=== PATIENT | female | born 1990 | race Caucasian/White ===

== ENCOUNTER 2016-07-01 19:25 | Emergency (ER) | payer OTHER ==
[2016-07-01 19:30] VITALS: TEMP 98.2
--- NOTE | 2016-07-01 20:52 | ED ---
Female Urogenital HPI - General Chief complaint: Vaginal Bleeding Stated complaint: 8 weeks pg; spotting Time Seen by Provider: 07/01/16 20:25 Source: patient, RN notes reviewed, old records reviewed Mode of arrival: ambulatory Limitations: no limitations - History of Present Illness Initial comments: Patient is a 25-year-old female with chief complaint of vaginal bleeding for approximately one day. She reports that she is approximately 8 weeks . She states that this is her second . Last menstrual period was mid April. She states with her first , she had no complications. She states that she did see her [facility] Dr. Angulo on Sunday and had some lab work done. She is unable to obtain lab work today. Patient reports that she does have some lower cramping pain. She reports that the pain is currently a 4 out of 10. She denies nausea, vomiting, shortness of breath, fever, chills, chest pain, dysuria, hematuria, diarrhea. - Related Data Home Medications Medication Instructions Recorded Confirmed No Known Home Medications [No 07/01/16 07/01/16 Known Home Medications] Allergies Allergy/AdvReac Type Severity Reaction Status Date / Time No Known Allergies Allergy Verified 07/01/16 19:27 Review of Systems ROS Statement: Those systems with pertinent positive or pertinent negative responses have been documented in the HPI. ROS Other: All systems not noted in ROS Statement are negative. Past Medical History Past Medical History: COPD History of Any Multi-Drug Resistant Organisms: None Reported Past Surgical History: No Surgical Hx Reported Past Psychological History: No Psychological Hx Reported Smoking Status: Current every day smoker Past Alcohol Use History: None Reported Past Drug Use History: Marijuana General Exam Limitations: no limitations General appearance: alert, in no apparent distress Head exam: Present: atraumatic, normocephalic, normal inspection Eye exam: Present: normal appearance, PERRL, EOMI. Absent: scleral icterus, conjunctival injection, periorbital swelling ENT exam: Present: normal exam, mucous membranes moist Neck exam: Present: normal inspection. Absent: tenderness, meningismus, lymphadenopathy Respiratory exam: Present: normal lung sounds bilaterally. Absent: respiratory distress, wheezes, rales, rhonchi, stridor Cardiovascular Exam: Present: regular rate, normal rhythm, normal heart sounds. Absent: systolic murmur, diastolic murmur, rubs, gallop, clicks GI/Abdominal exam: Present: soft, normal bowel sounds. Absent: distended, tenderness, guarding, rebound, rigid External exam: Present: normal external exam Speculum exam: Present: cervical discharge (bleeding. No evidence of significant clots or particles of conception. ), vaginal bleeding. Absent: normal speculum exam By manual exam: Present: normal by manual exam Extremities exam: Present: normal inspection, full ROM, normal capillary refill. Absent: tenderness, pedal edema, joint swelling, calf tenderness Back exam: Present: normal inspection Neurological exam: Present: alert, oriented X3, CN II-XII intact Psychiatric exam: Present: normal affect, normal mood Skin exam: Present: warm, dry, intact, normal color. Absent: rash Course Vital Signs 07/01/16 07/01/16 07/02/16 19:27 22:30 00:48 Temperature 98.2 F Pulse Rate 97 81 78 Respiratory 18 16 16 Rate Blood Pressure 135/78 122/69 129/71 O2 Sat by Pulse 100 98 98 Oximetry Medical Decision Making - Medical Decision Making Patient is a 25-year-old female with chief complaint of vaginal bleeding for approximately one day. She reports that she is approximately 8 weeks . She states that this is her second . Patient transvaginal US shows single IUP measuring 6 weeks. Patient is B+ for blood bank, and serum hcg is 28, 200. Patient does have significant vaginal bleeding, cervix is not dialated, no clots. Patient instructed that she has a threatened miscarraige and needs to repeat lab work and follow up with OB Dr. Angulo. Patient given note for work. Patient understands treatment plan and will comply. Did discuss pelvic rest and no strenous activity. - Lab Data Result diagrams: 07/01/16 22:31 Lab Results 07/01/16 07/01/16 07/01/16 Range/Units 22:04 22:31 22:31 WBC 7.6 (3.8-10.6) k/uL RBC 4.18 (3.80-5.40) m/uL Hgb 12.5 (11.4-16.0) gm/dL Hct 36.7 (34.0-46.0) % MCV 88.0 (80.0-100.0) fL MCH 29.9 (25.0-35.0) pg MCHC 34.0 (31.0-37.0) g/dL RDW 12.3 (11.5-15.5) % Plt Count 164 (150-450) k/uL Neutrophils % 62 % Lymphocytes % 27 % Monocytes % 6 % Eosinophils % 2 % Basophils % 1 % Neutrophils # 4.7 (1.3-7.7) k/uL Lymphocytes # 2.1 (1.0-4.8) k/uL Monocytes # 0.5 (0-1.0) k/uL Eosinophils # 0.1 (0-0.7) k/uL Basophils # 0.1 (0-0.2) k/uL HCG, Quant 34979.9 mIU/mL Urine Color Urine Appearance (Clear) Urine pH (5.0-8.0) Ur Specific [place] (1.001-1.035) Urine Protein (Negative) Urine Glucose (UA) (Negative) Urine Ketones (Negative) Urine Blood (Negative) Urine Nitrate (Negative) Urine Bilirubin (Negative) Urine Urobilinogen (<2.0) mg/dL Ur Leukocyte Esterase (Negative) Urine WBC (0-5) /hpf Ur Squamous Epith Cells (0-4) /hpf Urine Bacteria (None) /hpf Urine Mucus (None) /hpf Trichomonas Ag (Rapid) Negative (Negative) Blood Type Blood Type Recheck 07/01/16 07/01/16 Range/Units 22:31 22:43 WBC (3.8-10.6) k/uL RBC (3.80-5.40) m/uL Hgb (11.4-16.0) gm/dL Hct (34.0-46.0) % MCV (80.0-100.0) fL MCH (25.0-35.0) pg MCHC (31.0-37.0) g/dL RDW (11.5-15.5) % Plt Count (150-450) k/uL Neutrophils % % Lymphocytes % % Monocytes % % Eosinophils % % Basophils % % Neutrophils # (1.3-7.7) k/uL Lymphocytes # (1.0-4.8) k/uL Monocytes # (0-1.0) k/uL Eosinophils # (0-0.7) k/uL Basophils # (0-0.2) k/uL HCG, Quant mIU/mL Urine Color Rea Urine Appearance Clear (Clear) Urine pH 6.0 (5.0-8.0) Ur Specific [place] 1.030 (1.001-1.035) Urine Protein Negative (Negative) Urine Glucose (UA) Negative (Negative) Urine Ketones 2+ H (Negative) Urine Blood Small H (Negative) Urine Nitrate Negative (Negative) Urine Bilirubin Negative (Negative) Urine Urobilinogen <2.0 (<2.0) mg/dL Ur Leukocyte Esterase Negative (Negative) Urine WBC 3 (0-5) /hpf Ur Squamous Epith Cells 1 (0-4) /hpf Urine Bacteria Rare H (None) /hpf Urine Mucus Occasional H (None) /hpf Trichomonas Ag (Rapid) (Negative) Blood Type B Positive Blood Type Recheck No - Radiology Data Radiology results: report reviewed Ultrasound gestational age is 6 weeks and 1 day. The estimated delivery date is to bed 17. getting process. Single live IUP. Disposition Clinical Impression: Threatened Disposition: HOME SELF-CARE Condition: Good Instructions: Threatened Miscarriage (ED) Additional Instructions: Patient advised to follow up with [facility]. Patient advised also repeat her lab work only 48 hours to compare today's. Patient's beta hCG is currently 28, 800. Patient is to remain on light duty no heavy lifting, or sexual intercourse. Referrals: Kanchan Mack MD [STAFF PHYSICIAN] - 1-2 days Shawn Trotter MD [Primary Care Provider] - 1-2 days Time of Disposition: 00:23
--- NOTE | 2016-07-01 22:02 | US ---
EXAMINATION TYPE: US OB <= 14 wk fetus DATE OF EXAM: 07/01/2016 9:50 PM COMPARISON: NONE CLINICAL HISTORY: pain. spotting, no previous ultrasound with this EXAM PERFORMED: Transabdominal (TA) EXAM MEASUREMENTS: GESTATIONAL AGE / DATING Dates by LMP: (6 weeks/5 days) EDC: 02/19/2017 Dates by Current Scan: (6 weeks/1 days) EDC: 02/23/2017 MATERNAL ANATOMY Uterus: 8.2 x 5.7 x 4.9 cm Right Ovary: 2.8 x 2.0 x 1.4 cm Left Ovary: 3.5 x 2.8 x 2.4 cm Post CDS / Adnexa: no free fluid Presence of corpus luteal cyst: left ovary = 2.0 x 2.2 x 1.9 cm Presence of subchorionic bleed: no bleed seen GESTATION / SURVEY CRL: 0.4 cm (6 weeks/1 days) MSD: not measured Yolk Sac (normal less than 6mm): 1.9 mm Heart Rate: 120 bpm Rhythm: Normal IUP: Viable IUP Date of LMP: 05/15/2016 Beta HcG (if available): not available TECHNOLOGIST IMPRESSION: Live single IUP seen measuring 6 weeks 1 day IMPRESSION: Ultrasound gestational age is 6 weeks 1 day. The IGOR is 02/23/2017. I see no complicating process.
[2016-07-01 22:47] LABS: Basophils # (A) 0.1 k/uL (0-0.2); Basophils % (A) 1 %; CH 30.5; CHCM 34.8; Eosinophils # (A) 0.1 k/uL (0-0.7); Eosinophils % (A) 2 %; HCT 36.7 % (34.0-46.0); HDW 1.98; HGB 12.5 gm/dL (11.4-16.0); Luc # (Auto) 0.16; Luc % (Auto) 2; Lymphocytes # (A) 2.1 k/uL (1.0-4.8); Lymphocytes % (A) 27 %; MCH 29.9 pg (25.0-35.0); Mean Platelet Volume 8.7; Monocytes # (A) 0.5 k/uL (0-1.0); Monocytes % (A) 6 %; Neutrophils # (A) 4.7 k/uL (1.3-7.7); Neutrophils % (A) 62 %; RBC 4.18 m/uL (3.80-5.40); RDW 12.3 % (11.5-15.5); WBC 7.6 k/uL (3.8-10.6); WBC (Perox) 7.93
[2016-07-01 22:50] LABS: Appearance,Urine Clear (Clear); Bacteria,Urine Rare /hpf; Bilirubin,Urine Negative (Negative); Glucose,Urine (UA) Negative (Negative); Ketones,Urine 2+ (Negative); Leukocyte Esterase,Urine Negative (Negative); Mucus,Urine Occasional /hpf; Nitrite,Urine Negative (Negative); Particle Count 4339; Protein,Urine Negative (Negative); Squamous Epithelial Cell,Urine 1 /hpf (0-4); UA Billing (MACRO vs. MICRO) MICRO; Urobilinogen,Urine <2.0 mg/dL (<2.0); WBC,Urine 3 /hpf (0-5)
[2016-07-02 00:48] VITALS: RESP 16
[2016-07-02 00:49] VITALS: BP 129/71; PULSE 78
== END 2016-07-02 00:48 | disposition home or self-care (01) ==
LOC: EC 19:25
DX: O20.0 Threatened abortion (principal); O99.331 Smoking (tobacco) complicating pregnancy, first trimester; F17.200 Nicotine dependence, unspecified, uncomplicated; Z3A.01 Less than 8 weeks gestation of pregnancy
CPT/HCPCS: 36415; 76801; 81001; 84702; 85025; 86900; 86901; 87070; 87205; 87491; 87591; 87808; 99284

== ENCOUNTER → 2016-07-03 | Outpatient (CLI) | payer OTHER | END | disposition home or self-care (01) | LOC: LABWHC1 09:55 | PROVIDERS: ATTEND Physician Assistant Medical | DX: O20.0 Threatened abortion (principal) | CPT/HCPCS: 36415; 84702 ==

== ENCOUNTER → 2016-07-11 | Outpatient (CLI) | payer OTHER ==
--- NOTE | 2016-07-11 19:34 | US ---
EXAMINATION TYPE: US OB <= 14 wk fetus DATE OF EXAM: 07/11/2016 6:39 PM COMPARISON: Prior in PACS CLINICAL HISTORY: Z34.80 Confirm Dates. Spotting EXAM PERFORMED: Transabdominal (TA)- patient declined transvaginal ultrasound EXAM MEASUREMENTS: GESTATIONAL AGE / DATING Physician Established: Not established Dates by LMP: (8 weeks/1 days) EDC: 02/19/2017 Dates by First Scan: (7 weeks/4 days) EDC: 02/23/2017 Dates by Current Scan for: (7 weeks/3 days) EDC: 02/24/2017 MATERNAL ANATOMY Uterus: 10.8 x 5.4 x 6.3 cm Right Ovary: 3.1 x 1.7 x 2.3 cm Left Ovary: 3.1 x 2.3 x 3.1 cm Post CDS / Adnexa: wnl Presence of free fluid: No Presence of corpus luteal cyst: Yes, left ovary measuring 1.6 x 1.4 x 2.0 cm Presence of subchorionic bleed: Yes, to the right of the gestational sac 1.2 x 1.1 x 1.0 cm GESTATION / SURVEY CRL: 1.23 cm (7 weeks/3 days) Yolk Sac (normal less than 6mm): 2 mm Heart Rate: 149 bpm Rhythm: Normal IUP: Viable IUP Date of LMP: 05/15/2016- patient unsure about this date Beta HcG (if available): Not available at time of exam TECHNOLOGIST IMPRESSION: Viable IUP with an IGOR of 02/24/2017 on this exam. Probable subchorionic ble ed visualized. Cyst visualized on the right ovary IMPRESSION: There is a small 12 x 10 mm subchorionic fluid collection that could be a small hemorrhage. Living [facility] with gestational age of 7 weeks 3 days.
== END ==
LOC: RADUSMAIN 17:55
PROVIDERS: ATTEND Obstetrics & Gynecology
DX: Z34.80 Encounter for supervision of other normal pregnancy, unspecified trimester (principal)
CPT/HCPCS: 76700; 76801

== ENCOUNTER → 2016-07-11 | Outpatient (CLI) | payer OTHER ==
--- NOTE | 2016-07-11 08:15 | US ---
EXAMINATION TYPE: US abdomen complete DATE OF EXAM: 07/11/2016 7:38 AM COMPARISON: NONE CLINICAL HISTORY: 25-year-old female LUQ Pain R10.1; intermittent midline to LUQ pain x 1 month; preg nant ~ 6 weeks; known gallstones. TECHNIQUE: Multiple sonographic images of the abdomen were obtained. FINDINGS: Liver Length: 18.9 cm Gallbladder Wall: 0.2 cm CBD: 0.3 cm Spleen: 10.1 cm Right Kidney: 11.9 x 5.5 x 4.1 cm Left Kidney: 11.0 x 5.0 x 3.7 cm Pancreas: Within normal limits Liver: Mildly enlarged but with normal homogeneous echotexture and no focal lesion. Gallbladder: No abnormal gallbladder distention, wall thickening, or pericholecystic fluid. However, numerous shadowing calculi are present dependently measuring up to 1.2 cm. Evidence for sonographic Patel's sign: No CBD: Within normal limits Spleen: Within normal limits Right Kidney: No hydronephrosis. There are either some prominent vascular reflections or a 4 mm calc ulus at the midpole. Left Kidney: No hydronephrosis. There are either some prominent vascular reflections or a 3 mm mid po le calculus. Upper IVC: Within normal No evidence for AAA. N vidence for AAA IMPRESSION: 1. Borderline to mild hepatomegaly. The ultrasound appearance of the liver is otherwise relatively un remarkable. 2. Cholelithiasis without ancillary findings of acute cholecystitis. 3. Either prominent vascular reflections or possible 4 mm and 3 mm nonobstructive calculi in the midp ole of the right and left kidneys, respectively.
== END | disposition home or self-care (01) ==
LOC: RADUSWWP 06:59
PROVIDERS: ATTEND Family Medicine
DX: K80.20 Calculus of gallbladder without cholecystitis without obstruction (principal)
CPT/HCPCS: 76700

== ENCOUNTER → 2016-10-09 | Outpatient (CLI) | payer OTHER ==
--- NOTE | 2016-10-09 12:08 | US ---
EXAMINATION TYPE: US OB anatomy transabd DATE OF EXAM: 10/09/2016 COMPARISON: US first trimester July 11, 2016 HISTORY: Z36 ENCOUNTER FOR SCREENING OF MOTHER TECHNIQUE: Transabdominal (TA) EXAM MEASUREMENTS: GESTATIONAL AGE / DATING Physician Established: (21 weeks/0 days) EDC: 02/19/17 Dates by LMP: (21 weeks/0 days) EDC: 02/19/17 Dates by First Scan: (20 weeks/3 days) EDC: 02/23/17 Dates by Current Scan for: (20 weeks/1 days) EDC: 02/25/17 SURVEY IUP: Single PLACENTA: Posterior PREVIA: No previa ENOC: 12.2 cm CERVICAL LENGTH (transabdominal: norm > 3.0cm): 3.7 cm BIOMETRY PRESENTATION: Vertex LIE: Longitudinal BPD: 5.0 cm 21 weeks / 1 days HC: 17.8 cm 20 weeks / 2 days AC: 15.0 cm 20 weeks / 1 days FL: 3.2 cm 20 weeks / 0 days ESTIMATED WEIGHT IN GRAMS: 336 grams ESTIMATED WEIGHT IN LBS/OZS: 0 lbs. 12 oz. WEIGHT PERCENTAGE BASED ON ESTABLISHED DATE: 10 % HC/AC: 1.2 FL/AC: 21.5 HEART RATE: 141 bpm RHYTHM: Normal ANATOMY SEEN (within normal limits): * Lateral Vent (< 1 cm) 0.6 cm * Cisterna Magna (< 1.1 cm) 0.3 cm * Nuchal Fold (< 0.6 cm) 0.3 cm * Cerebellum (varies with age) 1.9 cm Choroid Plexus (bilateral) Midline Falx Cavus Septi Pellucidi Four Chamber Heart Outflow tracts: LVOT/RVOT Stomach Situs Nose / Lips Diaphragm Kidneys (bilateral) Bladder Cord Insert Three Vessel Cord Longitudinal Spine Transverse Spine Arms (bilateral) Legs (bilateral) Anatomy seen wnl. Single live intrauterine gestation is redemonstrated. Normal cephalad presentation to fetus is curren tly identified. There is no ultrasound evidence for placenta previa. Amniotic fluid index is within n ormal limits. biometry measurements are concordant felt within normal limits. Detailed anatomic al survey shows no suspicious abnormality on still images saved nor during real-time scanning per clemente hnologist. IMPRESSION: As above
== END | disposition home or self-care (01) ==
LOC: RADUSWWP 10:13
PROVIDERS: ATTEND Obstetrics & Gynecology
DX: Z36 Encounter for antenatal screening of mother (principal)
CPT/HCPCS: 76811

== ENCOUNTER 2017-01-04 | Outpatient (CLI) | payer OTHER ==
--- NOTE | 2017-01-29 09:11 | P.MSEPDOC ---
Presenting Problems - Arrival Data Date of Arrival on Unit: 01/04/17 Time of Arrival on Unit: 14:37 Mode of Transport: Wheelchair - Complaint OB-Reason for Admission/Chief Complaint: Observation/Evaluation Comment: pt c/o lower abd to left side discomfrt for 1 week. pt states its worse when shes up ambulating. pt sees dr leija but unable to get into see him so she showed up here to be evualted Medical History - Information : 2 Para: 1 Term: 1 : 0 Abortions: Spontaneous or Elective: 0 Number of Living Children: 1 - Gestational Age Gestational Age by IGOR (wks/days): 33 Weeks and 3 Days - History Complications: Smoker Comment: no record to look at due to pt a D.O.M Review of Systems - Review of Systems Constitutional: No problems Breast: No problems ENT: No problems Cardiovascular: No problems Respiratory: No problems Gastrointestinal: No problems Genitourinary: No problems Musculoskeletal: No problems Neurological: No problems Skin: No problems Comment: PT STATES SHE HAS PROBLEMS WITH GALLSTONES AND COPD AND ON A VENTLIN INHALER NEEDED PT A EVERY DAY SMOKER SMOKES APPROX 1 PACK A DAY Vital Signs - Temperature Temperature: 98.2 F Temperature Source: Oral - Pulse Right Brachial Pulse Rate: 90 Pulse Assessment Method: Automatic Cuff - Respirations Respiratory Rate: 16 Oxygen Delivery Method: Room Air - Blood Pressure Right Arm Blood Pressure: 118/70 Blood Pressure Mean: 86 Blood Pressure Source: Automatic Cuff Medical Screen Scoring (Pre) - Cervical Exam Dilation: 0 cm = 0 Membranes: Intact - Uterine Contractions Frequency: N/A - Maternal Vital Signs Maternal Temperature: N/A Signs of Preeclampsia: N/A Maternal Respirations: N/A - Maternal Trauma Maternal Trauma: N/A - Assessment Baseline FHR: 140 Heart Rate - NICHD Category: Category I (Normal) = 0 NST: Reactive Position: N/A Station: N/A - Total Score Total Score (Pre): 0 Physician Notification (Pre) - Physician Notified Physician Notified Date: 01/04/17 Physician Notified Time: 16:00 Physician/Practitioner Notifed:: Dr Mack. Spoke With: Dr Mack New Order Received: (Check cervix. discharge home if cervix closed) - Notification Comment Comment: instruct pt to follow up with Dr Jacklyn weber ( appt already scheduled at 930 am per pt) pelvic rest until discusses with Dr Villasenor. Increase oral fluids. Plaing tylenol per bottle instructions if desired for likely ligament pain. Disposition - Disposition OB Disposition: Discharge to home, Written follow up instructions reviewed Discharge Date: 01/04/17 Discharge Time: 16:20 I agree with the RN Medical Screening Exam: Yes Risk & Benefit of care provided described in d/c instruction: Yes Diagnosis: FALSE LABOR BEFORE 37 COMPLETED WEEKS OF GEST, THIRD TRI
== END 2017-01-04 16:20 | disposition home or self-care (01) ==
CPT/HCPCS: 59025; G0463; 99213

== ENCOUNTER → 2020-01-01 | Outpatient (CLI) | payer OTHER | END | disposition home or self-care (01) | LOC: LABWHC1 13:10 | PROVIDERS: ATTEND Family Medicine | DX: Z03.818 Encounter for observation for suspected exposure to other biological agents ruled out (principal) | CPT/HCPCS: U0003; C9803 ==

== ENCOUNTER → 2020-07-21 | Outpatient (CLI) | payer OTHER | END | disposition home or self-care (01) | LOC: LABWHC1 16:10 | PROVIDERS: ATTEND Family Medicine | DX: Z20.822 Contact with and (suspected) exposure to COVID-19 (principal); R05 Cough | CPT/HCPCS: U0003; C9803 ==

== ENCOUNTER 2020-10-15 19:50 | Emergency (ER) | payer OTHER ==
[2020-10-15 20:05] VITALS: TEMP 98
--- NOTE | 2020-10-15 20:58 | ED ---
General Adult HPI - General Source: patient, family, RN notes reviewed, old records reviewed Mode of arrival: wheelchair Limitations: no limitations <Carter Christianson - Last Filed: 10/15/20 20:56> <Izaiah Smith - Last Filed: 10/18/20 06:11> - General Chief complaint: Psychiatric Symptoms Stated complaint: Anxiety Time Seen by Provider: 10/15/20 20:08 - History of Present Illness Initial comments: 29-year-old female presenting with anxiety, panic attacks, suicidal ideation. Patient denies suicide attempt. She does admit to alcohol consumption today. She is uncertain exactly what triggered this panic attack. She is calm and cooperative at the time my evaluation with no physical complaints. (Carter Christianson) - Related Data Home Medications Medication Instructions Recorded Confirmed No Known Home Medications 10/15/20 10/15/20 Allergies Allergy/AdvReac Type Severity Reaction Status Date / Time No Known Allergies Allergy Verified 10/15/20 20:43 Review of Systems ROS Other: All systems not noted in ROS Statement are negative. <Carter Christianson - Last Filed: 10/15/20 20:56> ROS Other: All systems not noted in ROS Statement are negative. <Izaiah Smith - Last Filed: 10/18/20 06:11> ROS Statement: Those systems with pertinent positive or pertinent negative responses have been documented in the HPI. Past Medical History Past Medical History: COPD History of Any Multi-Drug Resistant Organisms: None Reported Past Surgical History: No Surgical Hx Reported Past Psychological History: Anxiety, Bipolar, Depression Smoking Status: Current every day smoker Past Alcohol Use History: Occasional Past Drug Use History: Marijuana <Carter Christianson - Last Filed: 10/15/20 20:56> General Exam Limitations: no limitations General appearance: alert, in no apparent distress Head exam: Present: atraumatic, normocephalic Eye exam: Present: normal appearance, PERRL ENT exam: Present: normal exam Neck exam: Present: normal inspection. Absent: tenderness, meningismus Respiratory exam: Present: normal lung sounds bilaterally. Absent: respiratory distress Cardiovascular Exam: Present: regular rate, normal rhythm GI/Abdominal exam: Present: soft. Absent: distended, tenderness Extremities exam: Present: normal inspection, normal capillary refill. Absent: pedal edema Neurological exam: Present: alert, oriented X3, CN II-XII intact. Absent: motor sensory deficit Psychiatric exam: Present: flat affect, suicidal ideation Skin exam: Present: warm, dry, intact. Absent: cyanosis, diaphoretic <Carter Christianson - Last Filed: 10/15/20 20:56> Course <Carter Christianson - Last Filed: 10/15/20 20:56> <Izaiah Smith - Last Filed: 10/18/20 06:11> Vital Signs 10/15/20 10/16/20 19:58 03:36 Temperature 98.0 F Pulse Rate 110 H 63 Respiratory 45 H 18 Rate Blood Pressure 140/86 O2 Sat by Pulse 100 99 Oximetry - Reevaluation(s) Reevaluation #1: 10/15/20 2300 patient care signed out to Dr. Smith. Awaiting sobriety and EPS evaluation. (Carter Christianson) Medical record is reviewed Medical clear for psychiatric evaluation (Izaiah Smith) Medical Decision Making <Izaiah Smith - Last Filed: 10/18/20 06:11> - Medical Decision Making 29 female the ER for psychiatric evaluation. Patient is stable for discharge home (Izaiah Smith) - Lab Data Lab Results 10/15/20 Range/Units 21:01 Urine Opiates Screen Not Detected (NotDetected) Ur Oxycodone Screen Not Detected (NotDetected) Urine Methadone Screen Not Detected (NotDetected) Ur Propoxyphene Screen Not Detected (NotDetected) Ur Barbiturates Screen Not Detected (NotDetected) U Tricyclic Antidepress Not Detected (NotDetected) Ur Phencyclidine Scrn Not Detected (NotDetected) Ur Amphetamines Screen Not Detected (NotDetected) U Methamphetamines Scrn Not Detected (NotDetected) U Benzodiazepines Scrn Not Detected (NotDetected) Urine Cocaine Screen Not Detected (NotDetected) U Marijuana (THC) Screen Not Detected (NotDetected) Disposition <Carter Christianson - Last Filed: 10/15/20 20:56> Is patient prescribed a controlled substance at d/c from ED?: No <Izaiah Smith - Last Filed: 10/18/20 06:11> Clinical Impression: Depression Disposition: HOME SELF-CARE Condition: Fair Instructions (If sedation given, give patient instructions): Depression (ED) Referrals: None,Stated [Primary Care Provider] - 1-2 days
[2020-10-15 21:30] LABS: Amphetamine Screen,Urine Not Detected (NotDetected); Barbiturate Screen,Urine Not Detected (NotDetected); Benzodiazepines Screen,Urine Not Detected (NotDetected); Cocaine Screen,Urine Not Detected (NotDetected); Methadone Screen, Urine Not Detected (NotDetected); Opiate Screen,Urine Not Detected (NotDetected); Oxycodone Screen, Urine Not Detected (NotDetected); Phencyclidine Screen,Urine Not Detected (NotDetected); Tricyclic Antidepressant,Urine Not Detected (NotDetected); Urn Cannabinoid Scrn Not Detected (NotDetected)
[2020-10-16 03:38] VITALS: BP 140/86; PULSE 63; RESP 18
== END 2020-10-16 03:38 | disposition home or self-care (01) ==
LOC: EC 19:50
DX: F32.9 Major depressive disorder, single episode, unspecified (principal); J44.9 Chronic obstructive pulmonary disease, unspecified; F41.9 Anxiety disorder, unspecified; F12.90 Cannabis use, unspecified, uncomplicated; F17.200 Nicotine dependence, unspecified, uncomplicated; Z72.89 Other problems related to lifestyle
CPT/HCPCS: 80306; 82075; 99284